=== PATIENT | male | born 1995 | race African-American/Black ===

== ENCOUNTER 2017-02-27 19:04 | Emergency (ER) | payer OTHER ==
[~2017-02-27] VITALS: Ht 188 cm; Wt 77.1 kg
[2017-02-27 20:03] VITALS: BP 125/86
== END 2017-02-27 20:04 | disposition home or self-care (01) ==
LOC: ER 19:04
DX: S21.119A Laceration without foreign body of unspecified front wall of thorax without penetration into thoracic cavity, initial encounter (principal); W26.0XXA Contact with knife, initial encounter; Y93.89 Activity, other specified; Y92.89 Other specified places as the place of occurrence of the external cause; Y99.9 Unspecified external cause status